=== PATIENT | male | born 1995 | race Two or more races ===

== ENCOUNTER 2017-09-08 00:28 | Emergency (ER) | payer SELFPAY ==
[2017-09-08] MEDS: LIDOCAINE 1% MDV 20ML VIAL IM (01:12)
== END 2017-09-08 02:14 | disposition home or self-care (01) ==
LOC: M ED 00:28
DX: S01.511A Laceration without foreign body of lip, initial encounter (principal); W01.10XA Fall on same level from slipping, tripping and stumbling with subsequent striking against unspecified object, initial encounter; Y92.099 Unspecified place in other non-institutional residence as the place of occurrence of the external cause; Y93.9 Activity, unspecified; Y99.9 Unspecified external cause status; J45.909 Unspecified asthma, uncomplicated
CPT/HCPCS: 12013